=== PATIENT | female | born 1970 | race Hispanic/Latino ===

== ENCOUNTER → 2020-06-10 | Outpatient (CLI) | payer OTHER ==
--- NOTE | 2020-06-10 13:14 | Diagnostic Imaging Report ---
EXAMINATION: MRI of the lumbar spine without contrast HISTORY: 49-year-old female with right lower extremity pain for last 6 months COMPARISON: None. TECHNIQUE: Sagittal T1, T2, STIR; axial T2 and proton density. FINDINGS: It is assumed that there are 5 lumbar vertebrae. Curvature/Alignment: Normal lumbar lordosis. Subtle S shaped lumbar curvature. Vertebrae: No evidence of recent fracture, infection, or neoplasm. Well-circumscribed T1 and T2 hyperintense benign hemangioma in the L2 vertebral body. Conus: Normal, terminating at L1 Cauda equina: Unremarkable. Lower thoracic: Small left paracentral disc protrusion at T12-L1 flattens the left ventral thecal sac, otherwise without stenoses or nerve root compression. Paraspinal soft tissues: Unremarkable. Degenerative changes: L1-L2: Small left paracentral disc protrusion with underlying annular fissuring flattens the left ventral thecal sac, otherwise no canal stenosis or neurocompression. L2-L3: Unremarkable. L3-L4: Asymmetric left disc bulge and mild facet arthrosis. No spinal canal or foraminal stenoses. L4-L5: Asymmetric left disc bulge and facet arthrosis. Mild left foraminal stenosis without evidence of nerve root compression. L5-S1: Asymmetric right disc bulge and prominent facet arthrosis results in narrowing of the right lateral recess and foramen, with probable displacement of the traversing right S1 nerve root and the exiting right L5 nerve root at the foraminal level, which may explain the patient's symptoms. Sacroiliac joints: Unremarkable. IMPRESSION: 1. 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 2. Moderate degenerative narrowing of the right lateral recess at L5-S1 as above. 3. Mild degenerative foraminal stenosis the left at L4-L5. 4. Small disc protrusions at T12-L1 and L1-L2 without associated stenosis or compression. Signed by: Dr. Cely Wilson M.D. on 06/10/2020 1:11 PM
== END ==
LOC: MRI 10:43
PROVIDERS: ATTEND Specialist
DX: M47.816 Spondylosis without myelopathy or radiculopathy, lumbar region (principal)
CPT/HCPCS: 72148